=== PATIENT | male | born 1980 | race Caucasian/White ===

== ENCOUNTER 2019-04-14 02:01 | Observation (INO) | payer OTHER ==
[2019-04-14 02:55] LABS: ABSOLUTE BASOPHILS # (AUTO) 0.1 10^3/uL (0.0-0.2); ABSOLUTE EOSINOPHILS # (AUTO) 0.3 10^3/uL (0.0-0.6); ABSOLUTE LYMPHOCYTES (AUTO) 1.5 10^3/uL (0.5-4.7); ABSOLUTE MONOCYTES (AUTO) 0.9 10^3/uL (0.1-1.4); ABSOLUTE NEUT (AUTO) 10.5 10^3/uL (1.7-8.2); BASOPHILS % (AUTO) 0.4 % (0-2); EOSINOPHILS % (AUTO) 2.1 % (0-6); HEMATOCRIT 43.8 % (37.9-51.0); HEMOGLOBIN 14.8 g/dL (13.5-17.0); LYMPHOCYTES % (AUTO) 11.2 % (13-45); MEAN CORPUSCULAR HEMOGLOBIN 28.1 pg (27.0-33.4); MEAN CORPUSCULAR HGB CONC 33.8 g/dL (32.0-36.0); MEAN CORPUSCULAR VOLUME 83 fl (80-97); MONOCYTES % (AUTO) 6.9 % (3-13); PLATELET COUNT 295 10^3/uL (150-450); RED BLOOD COUNT 5.27 10^6/uL (4.35-5.55); RED CELL DISTRIBUTION WIDTH 13.5 % (11.5-14.0); SEGMENTED NEUTROPHILS % (AUTO) 79.4 % (42-78); TOTAL CELLS COUNTED % (AUTO) 100 %; WHITE BLOOD COUNT 13.2 10^3/uL (4.0-10.5)
[2019-04-14 03:14] LABS: ALBUMIN 4.6 g/dL (3.5-5.0); ALKALINE PHOSPHATASE 115 U/L (38-126); ANION GAP 9 (5-19); ASPARTATE AMINO TRANSFERASE 37 U/L (17-59); BILIRUBIN,DIRECT 0.2 mg/dL (0.0-0.4); BILIRUBIN,TOTAL 0.8 mg/dL (0.2-1.3); BLOOD UREA NITROGEN 16 mg/dL (7-20); CALCIUM 9.9 mg/dL (8.4-10.2); CARBON DIOXIDE 27 mmol/L (22-30); CHLORIDE 102 mmol/L (98-107); GLUCOSE 99 mg/dL (75-110); POTASSIUM 4.6 mmol/L (3.6-5.0); TOTAL PROTEIN 8.2 g/dL (6.3-8.2)
--- NOTE | 2019-04-14 03:52 | ER Document Report ---
ED General - General Chief Complaint: Lower Abdominal Pain Stated Complaint: LOWER ABDOMINAL PAIN Time Seen by Provider: 04/14/19 03:04 Mode of Arrival: Ambulatory Information source: Patient TRAVEL OUTSIDE OF THE [place] IN LAST 30 DAYS: No - HPI Onset: Other - last night Onset/Duration: Gradual Quality of pain: Sharp Severity: Severe Pain Level: 5 Associated symptoms: Nausea Exacerbated by: Food Relieved by: Other - nothing Similar symptoms previously: No Recently seen / treated by doctor: No Notes: 38 year old male with no known PMH here for lower abdominal pain with nausea which started last night. The patient says the pain started in his mid abdomen and has since moved to his right lower quadrant. The patient denies fevers but he has had chills and some sweats. The patient denies urinary symptoms or diarrhea. The patient has not had prior surgeries. - Related Data Allergies/Adverse Reactions: No Known Allergies Allergy (Verified 04/14/19 02:11) Home Medications: statin qday Past Medical History - General Information source: Patient - Social History Smoking Status: Current Every Day Smoker Frequency of alcohol use: Occasional Drug Abuse: None Family History: Reviewed & Not Pertinent Patient has suicidal ideation: No Patient has homicidal ideation: No Review of Systems - Review of Systems Constitutional: Chills Gastrointestinal: Abdominal pain, Nausea. denies: Vomiting Physical Exam - Vital signs Vitals: Temp Pulse Resp BP Pulse Ox 97.9 F 85 16 139/96 H 97 04/14/19 02:10 04/14/19 02:10 04/14/19 02:10 04/14/19 02:10 04/14/19 02:10 - Notes Notes: GENERAL: Patient appears uncomfortable. Well-nourished and in no acute distress. HEAD: Atraumatic, normocephalic. EYES: Pupils equal round and reactive to light, extraocular movements intact, sclera anicteric, conjunctiva are normal. ENT: TMs normal, nares patent, oropharynx clear without exudates. Moist mucous membranes. NECK: Normal range of motion, supple without lymphadenopathy or JVD. LUNGS: Breath sounds clear to auscultation bilaterally and equal. No wheezes rales or rhonchi. HEART: Regular rate and rhythm without murmurs, rubs or gallops. ABDOMEN: Soft, moderate to severe tenderness in RLQ. Mild tenderness in suprapubic area. Normoactive bowel sounds. No guarding, no rebound. No masses appreciated. EXTREMITIES: Normal range of motion, no pitting or edema. No clubbing or cyanosis. NEUROLOGICAL: Cranial nerves II through XII grossly intact. Normal speech, normal gait. PSYCH: Normal mood, normal affect. SKIN: Warm, Dry, normal turgor, no rashes or lesions noted. Course - Re-evaluation Re-evalutation: 04/14/19 03:55 The patient has a fairly classic story for appendicitis with an elevated WBC count. General Surgery was consulted and Dr. Anthony saw the patient in the ER and he will admit the patient for surgical management. Will start Zosyn and IV Fluids while the patient is in the ER. 04/14/19 04:03 - Vital Signs Vital signs: Temp Pulse Resp BP Pulse Ox 97.9 F 85 16 139/96 H 97 04/14/19 02:10 04/14/19 02:10 04/14/19 02:10 04/14/19 02:10 04/14/19 02:10 - Laboratory Result Diagrams: 04/14/19 02:41 04/14/19 02:41 Laboratory results interpreted by me: 04/14/19 02:41 WBC 13.2 H Lymph % (Auto) 11.2 L Absolute Neuts (auto) 10.5 H Seg Neutrophils % 79.4 H Discharge - Discharge Clinical Impression: Appendicitis Qualifiers: Appendicitis type: acute appendicitis Acute appendicitis type: with localized peritonitis Appendicitis gangrene presence: unspecified whether gangrene present Appendicitis perforation presence: unspecified whether perforation present Appendicitis abscess presence: unspecified whether abscess present Qualified Code(s): K35.30 - Acute appendicitis with localized peritonitis, without perforation or gangrene Condition: Stable Disposition: ADMITTED OBSERVATION Admitting Provider: Surgicalist Unit Admitted: Surgical Floor
[2019-04-14 04:01] LABS: APPEARANCE,URINE CLEAR; BILIRUBIN,URINE NEGATIVE (NEGATIVE); COLOR,URINE YELLOW; GLUCOSE, URINE NEGATIVE (NEGATIVE); KETONES,URINE NEGATIVE (NEGATIVE); LEUKOCYTE ESTERASE,URINE NEGATIVE (NEGATIVE); NITRITE,URINE NEGATIVE (NEGATIVE); PROTEIN,URINE NEGATIVE (NEGATIVE); URINE SPECIFIC GRAVITY 1.021; UROBILINOGEN,URINE NEGATIVE mg/dL (<2.0)
[2019-04-14] MEDS ORDERED: RINGERS SOLUTION,LACTATED 1,000 ML IV PRN (04:02)
[2019-04-14] MEDS ORDERED: PIPERACILLIN/TAZOBACTAM 3.375 GM VIAL IV ONE (04:02)
[2019-04-14] MEDS ORDERED: NORMAL SALINE 1000 ML 1,000 ML IV ONE (04:02)
--- NOTE | 2019-04-14 04:08 | PDOC H&P ---
History of Present Illness Patient complains of: Abdominal pain History of Present Illness: GEORGETTE JUAREZ is a 38 year old male Presents emergency department via ground rescue complaining of abdominal pain acute onset last night associated with nausea, anorexia and inability to have a bowel movement. Patient was seen in emergency department where he was found to have right lower quadrant abdominal pain, tenderness, and a leukocytosis. Surgery was consulted, patient was evaluated felt to have acute appendicitis ba sed on clinical findings and was admitted to the surgical service for definitive management. Past Medical History Medical History: None Past Surgical History Past Surgical History: [place] teeth extracted Social History Smoking Status: Current Every Day Smoker Hx Recreational Drug Use: No Hx Prescription Drug Abuse: No Family History Family History: None Parental Family History Reviewed: No Children Family History Reviewed: No Sibling(s) Family History Reviewed.: No Medication/Allergy Allergies/Adverse Reactions: No Known Allergies Allergy (Verified 04/14/19 02:11) Review of Systems Constitutional: PRESENT: as per HPI Eyes: ABSENT: visual disturbances Ears: ABSENT: hearing changes Cardiovascular: ABSENT: chest pain, dyspnea on exertion, edema, orthropnea, palpitations Gastrointestinal: PRESENT: as per HPI. ABSENT: abdominal pain, constipation, diarrhea, hematemesis, hematochezia, nausea, vomiting Genitourinary: ABSENT: dysuria, hematuria Musculoskeletal: ABSENT: joint swelling Integumentary: ABSENT: rash, wounds Neurological: ABSENT: abnormal gait, abnormal speech, confusion, dizziness, focal weakness, syncope Endocrine: ABSENT: cold intolerance, heat intolerance, polydipsia, polyuria Hematologic/Lymphatic: ABSENT: easy bleeding, easy bruising Physical Exam Vital Signs: Temp Pulse Resp BP Pulse Ox 97.9 F 85 16 139/96 H 97 04/14/19 02:10 04/14/19 02:10 04/14/19 02:10 04/14/19 02:10 04/14/19 02:10 Intake & Output 04/12/19 04/13/19 04/14/19 06:59 06:59 06:59 Weight 84.8 kg General appearance: PRESENT: no acute distress Head exam: PRESENT: normocephalic Eye exam: PRESENT: EOMI Mouth exam: PRESENT: dry mucosa Neck exam: PRESENT: full ROM Respiratory exam: PRESENT: unlabored Cardiovascular exam: PRESENT: RRR Pulses: PRESENT: normal carotid pulses, normal radial pulses, normal femoral pulses, normal dorsalis pedis pul, +1 pedal pulses bilateral GI/Abdominal exam: PRESENT: firm, guarding, other - Localized right lower q uadrant tenderness with guarding; bowel sounds hypoactive Rectal exam: PRESENT: deferred Extremities exam: PRESENT: full ROM Musculoskeletal exam: PRESENT: ambulatory Neurological exam: PRESENT: oriented to person, oriented to place, oriented to time, oriented to situation Psychiatric exam: PRESENT: appropriate affect Skin exam: PRESENT: intact Results Laboratory Results: 04/14/19 02:41 04/14/19 02:41 04/14/19 04/14/19 04/14/19 02:41 02:41 03:49 WBC 13.2 H RBC 5.27 Hgb 14.8 Hct 43.8 MCV 83 MCH 28.1 MCHC 33.8 RDW 13.5 Plt Count 295 Seg Neutrophils % 79.4 H Sodium 138.0 Potassium 4.6 Chloride 102 Carbon Dioxide 27 Anion Gap 9 BUN 16 Creatinine 1.06 Est GFR ( Amer) > 60 Glucose 99 Calcium 9.9 Total Bilirubin 0.8 AST 37 Alkaline Phosphatase 115 Total Protein 8.2 Albumin 4.6 Lipase 127.3 Urine Color YELLOW Urine Appearance CLEAR Urine pH 5.0 Ur Specific [place] 1.021 Urine Protein NEGATIVE Urine Glucose (UA) NEGATIVE Urine Ketones NEGATIVE Urine Blood NEGATIVE Urine Nitrite NEGATIVE Ur Leukocyte Esterase NEGATIVE Urine WBC (Auto) 1 Urine RBC (Auto) 2 Assessment & Plan - Diagnosis (1) Appendicitis Qualifiers: Appendicitis type: acute appendicitis Acute appendicitis type: with localized peritonitis Appendicitis gangrene presence: unspecified whether gangrene present Appendicitis perforation presence: unspecified whether perforation present Appendicitis abscess presence: unspecified whether abscess present Qualified Code(s): K35.30 - Acute appendicitis with localized periton itis, without perforation or gangrene Is this a current diagnosis for this admission?: Yes Plan: Impression: Acute onset abdominal pain localized to right lower quadrant with tenderness, leukocytosis all consistent with acute appendicitis and otherwise healthy 38-year-old white male. Recommendations: 1. We will admit patient to the surgical service, keep n.p.o. on IV fluids and plan for interval laparoscopic, possible open appendectomy later this morning by Dr. Raymundo, surgical list 2. The mechanics of the operation, and a brief explanation of the risk benefits and alternatives were reviewed with the patient. He expresses understanding and agrees to proceed. (2) Smoker Is this a current diagnosis for this admission?: Yes (3) Hypercholesterolemia Is this a current diagnosis for this admission?: Yes - Time Time Spent: 30 to 50 Minutes Critical Time spent with patient: 15-24 minutes Medications reviewed and adjusted accordingly: Yes Anticipated discharge: Home - Inpatient Certification Based on my medical assessment, after consideration of the patient's comorbidities, presenting symptoms, or acuity I expect that the services needed warrant INPATIENT care.: Yes I certify that my determination is in accordance with my understanding of Medicare's requirements for reasonable and necessary INPATIENT services [42 CFR 412.3e].: Yes Medical Necessity: Need For IV Fluids, Need for Pain Control, Need for IV Antibiotics, Need for Surgery
[2019-04-14] MEDS: KETOROLAC TROMETHAMINE INJ/PF 30 MG/1 ML SDV IV PRN ×2 (04:42→13:42)
[2019-04-14] MEDS ORDERED: SUCCINYLCHOLINE CHLORIDE INJ 200 MG/10 ML VIAL ONE (06:00)
[2019-04-14] MEDS ORDERED: AMPICILLIN SODIUM/SULBACTAM NA 3 GM in NORMAL SALINE 100 ML IV SCH (06:00)
[2019-04-14] MEDS ORDERED: ROCURONIUM BROMIDE INJ 50 MG/5 ML VIAL IV ONE (06:00)
[2019-04-14] MEDS ORDERED: PROPOFOL INJ 200 MG/20 ML VIAL IV ONE (09:23)
[2019-04-14] MEDS ORDERED: ONDANSETRON HCL INJ/PF 4 MG/2 ML SDV ONE (09:23)
[2019-04-14] MEDS ORDERED: FENTANYL CITRATE INJ/PF 250 MCG/5 ML AMPULE ONE (09:23)
[2019-04-14] MEDS ORDERED: MIDAZOLAM 2 MG/2 ML INJ ONE (09:23)
[2019-04-14] MEDS ORDERED: BUPIVACAINE HCL 0.25 % INJ/PF (2.5 MG/1 ML) 30 ML VIAL ONE (09:27)
[2019-04-14] MEDS ORDERED: DIPHENHYDRAMINE HCL 50 MG/ML VIAL IV PRN (10:20)
[2019-04-14] MEDS ORDERED: PROMETHAZINE HCL INJ 25 MG/1 ML VIAL IV PRN (10:20)
[2019-04-14] MEDS ORDERED: MEPERIDINE HCL/PF INJ 25 MG/1 ML DISP.SYRIN IV PRN (10:20)
[2019-04-14] MEDS ORDERED: FENTANYL CITRATE INJ/PF 100 MCG/2 ML AMPUL IV PRN ×3 (10:20)
[2019-04-14] MEDS ORDERED: OXYCODONE-ACETAMINOPHEN 5-325 MG TABLET PO PRN ×2 (10:20→11:12)
[2019-04-14] MEDS ORDERED: MORPHINE SULFATE 10 MG/ML INJ IV PRN (10:20)
--- NOTE | 2019-04-14 11:10 | Operative Report ---
Operative Report DATE OF SURGERY: 04/14/19 PREOPERATIVE DIAGNOSIS: Acute appendicitis POSTOPERATIVE DIAGNOSIS: Same OPERATION: Laparoscopic appendectomy SURGEON: EMY COUCH ANESTHESIA: GA TISSUE REMOVED OR ALTERED: Appendix COMPLICATIONS: None ESTIMATED BLOOD LOSS: 10 cc QUANTITATIVE BLOOD LOSS: 10 INTRAOPERATIVE FINDINGS: Acute appendicitis PROCEDURE: After adequate general anesthesia patient placed in supine position and the abdomen prepped and draped in the usual sterile fashion. Appropriate timeout was then called. Next an infraumbilical incision was made and the fascia identified grasped with [place] clamps divided between Rupinder clamps and the mango toneal cavity punctured with a hemostat. The a 0 Vicryl sutures were placed on each side of the Franco clamps and the clamps were released. Digital palpation to the abdominal cavity was done and no evidence of adhesions inside the peritoneal area where the opening was made. Mckinney trocar was then inserted through the fascia through the abdominal cavity and CO2 insufflated to pressure 15 mmHg. A 5 mm was trocar was then inserted through a small incision in the suprapubic area and left lower quadrant 12 mm trocar inserted into the abdominal cavity and under direct vision. Next the appendix was noted to be inflamed and then lifted up and mesoappendix dissected with [place] dissector. The mesentery of the appendix was subsequently divided with the harmonic kevyn after Hemoclip placed over the appendiceal artery. The base of the appendix was noted to be free of any inflammation. This was subsequently stapled and divided with the use of Endo BLESSING white load. Appendix was then placed in an Endobag and pulled out through the umbilical port. Daniel trocar reinserted and the camera placed back through the Mckinney trocar. Initial stump with have a small amount of oozing right along the staple line and 3 hemoclips were placed over the staple line and piece of Surgicel subsequently placed over the stump for better hemostasis. There is no active bleeding noted however. Next omentum was then pulled over the area of the appendiceal stump site.. All the trochars were then removed and CO2 allowed to come out of the trocar sites. Fascial defect was then closed with a [id number] suture using 0 Vicryl and the 2 stay sutures tied over the fascial defect. Marcaine was then injected through the fascia and into the abdominal incision sites. The skin incisions were then closed with running subcuticular closure using 4-0 Vicryl undyed. Steri-Strips placed over the operative sites. Needle instrument sponge count were all correct and estimated blood loss about 10 cc. Patient tolerated procedure well brought to the PACU in satisfactory condition extubated.
[2019-04-14] MEDS: AMPICILLIN SODIUM/SULBACTAM NA 3 GM in NORMAL SALINE 100 ML IV SCH ×2 (13:46→17:12)
[2019-04-14 18:35] VITALS: BP 122/70
== END 2019-04-14 18:44 | disposition home or self-care (01) ==
LOC: ER 02:01 → EH 04:16 → 2N 05:08
PROVIDERS: ADMIT Surgery; ATTEND Surgery
DX: K35.30 Acute appendicitis with localized peritonitis, without perforation or gangrene (principal); F17.200 Nicotine dependence, unspecified, uncomplicated; E78.00 Pure hypercholesterolemia, unspecified; Z79.899 Other long term (current) drug therapy
CPT/HCPCS: 99284; 96365; 36415; 83690; 85025; 80053; 81001; 88304 ×2; 00840; 44970; G0378 ×2; J2250; J3490; J3010; J0295; J1885; J0330; J2405; J7050; J7030; J7120; J2704; J2543; 840